=== PATIENT | male | born 1995 | race Caucasian/White ===

== ENCOUNTER 2017-10-17 11:39 | Emergency (ER) | payer OTHER ==
[~2017-10-17] VITALS: Ht 162.6 cm; Wt 81.9 kg
[~2017-10-17 11:39] MED LIST: MOTRIN800 MG PO; NAPROSYN500 MG PO; NORCO 5/3251 TABLET PO
[2017-10-17] MEDS ORDERED: TRAMADOL HCL50 MG PO (14:04)
[2017-10-17 14:18] VITALS: BP 123/77
== END 2017-10-17 14:18 | disposition home or self-care (01) ==
LOC: EME 11:39
DX: S40.021A Contusion of right upper arm, initial encounter (principal); W20.8XXA Other cause of strike by thrown, projected or falling object, initial encounter
CPT/HCPCS: 73030; 73060; 73090; 99281; 99284; J2270